=== PATIENT | male | born 1945 | race African-American/Black ===

== ENCOUNTER 2017-02-16 16:01 | Observation (INO) ==
--- NOTE | 2017-02-16 16:41 | EKG Report ---
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
--- NOTE | 2017-02-16 17:00 | XRay Report ---
History short of breath Comparison 01/11/2016 The heart is mildly enlarged No congestive failure or confluent infiltrates seen Impression: Mild cardiomegaly PROCEDURE INTERPRETED AT [facility] DEPARTMENT OF RADIOLOGY Final Report Signed by: Dr. Nica Palma
[2017-02-16 17:18] LABS: Basophils # 0.1 10*3/uL (0.0-0.2); Basophils % 0.9 % (0.0-0.8); Eosinophils # 0.2 10*3/uL (0.0-0.87); Eosinophils % 2.8 % (0.00-10.9); Hematocrit 35.6 VOL% (42.0-52.0); Hemoglobin 11.9 GM/DL (14.0-18.0); Immature Granulocytes % 0.1 %; Immature Granulocytes Absolute 0.01 #; Lymphocytes # 2.7 10*3/uL (1.4-4.0); Lymphocytes % 38.6 % (21.2-54.2); Mean Corpuscular HGB Conc 33.4 GM/DL (32-36); Mean Corpuscular Hemoglobin 31 PG (27-34); Mean Platelet Volume 11.1 FL (9.6-12.0); Monocytes # 0.6 10*3/uL (0.11-0.8); Monocytes % 8.4 % (1.7-12.7); Neutrophils # 3.4 10*3/uL (1.4-7.4); Neutrophils % 49.2 % (38.7-73.9); Platelet Count 133 T/CUMM (130-400); Red Blood Count 3.87 MC/CUMM (3.8-5.5); Red Cell Distribution Width 12.9 % (9.3-17.3); White Blood Count 6.9 T/CUMM (4-12)
--- NOTE | 2017-02-16 17:25 | CT Report ---
CT of the head without contrast. Indication: Dizziness. No previous study. There is calcific plaque present within the intracranial internal carotid arteries and vertebral arteries. There is generalized age-appropriate atrophy. There is bilateral basal ganglial calcification. There is no mass effect or midline shift. There is no evidence of acute hemorrhage. No cortical infarcts are seen at this time. There are areas of low density in the periventricular white matter, likely related to chronic microvascular ischemia. The internal auditory canals are of normal caliber. The calvarium is intact. The mastoid air cells are clear. 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 There is scattered mucosal thickening in the ethmoid sinuses. Postsurgical changes are noted at the cervical spine level. Impression: Mild paranasal sinus disease. White matter changes likely attributable to chronic microvascular ischemia. The CT exam was performed using one or more of the following dose reduction techniques: Automated exposure control, adjustment of the mA and/or kV according to patient size, or use of iterative reconstruction technique. PROCEDURE INTERPRETED AT [facility] DEPARTMENT OF RADIOLOGY Final Report Signed by: Dr. Alicia Palma
--- NOTE | 2017-02-16 17:32 | Emergency Department Note ---
Sanford Harrison Gwan, am scribing for, and in the presence of, Juan Covarrubias MD 16:42. Satish Harrison Phillip K, MD, personally performed the services described in this documentation, ascribed by Will Christina in my presence, and it is both accurate and complete 732 . Arrival - Arrival Chief Complaint: Dizziness Stated Complaint: DIZZY LEG WEAK SOB ED Nursing Triage Note: Pt was at [employer] this afternoon when he started to become Dizzy, near syncope, weakness, and SOB. Denies CP. 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 Mode of Arrival: Wheelchair Limitations: No Limitations Source: Patient, Old Records Reviewed, RN Notes Reviewed - History of Present Illness HPI Narrative: Patient is a 71 y/o male who presents to the ED for further evaluation of near syncope, generalized weakness, dizziness and SOB with an onset today. He has a PMHx of stent, CAD and TN. Patient stated that onset occurred while at [employer]. As he was walking back into the hinduism, he noted that he became very weak all over, developed a CHAVEZ and lost his vision before his near syncopal episode. He then said that the episode last about 10 minutes and after which he had bilateral numbness and weakness in his LE. S/P onset, pt had BS checked with a reading of 93. He denies having any chest pain, sore throat, cough or any hx of DM. While in ED, pt stated that he still has some weakness/numbness in legs and that he still has a CHAVEZ. Patient is followed by Dr. Martinez and [facility]. Onset (ago): hour(s) Consistency: constant Severity: moderate Allergies/Adverse Reactions: Allergies Allergy/AdvReac Type Severity Reaction Status Date / Time No Known Allergies Allergy Verified 06/08/15 18:19 Home Medications: Home Medications Medication Instructions Recorded Confirmed Type Aspirin [Ecotrin] 81 mg PO DAILY 06/08/15 02/16/17 History Review of System - Review of System 12 point system: reviewed and no additional remarkable complaints except as stated - Review of System Constitutional: Absent: chills, diaphoresis Eyes: Absent: discharge, pain Head/Ears/Nose/Throat: Absent: earache Respiratory: Present: as per HPI, other (shortness of breathe ) Cardiovascular: Present: as per HPI, syncope (near syncope). Absent: chest pain Gastrointestinal: Absent: abdominal pain, nausea, vomiting Genitourinary male: Absent: urgency, dysuria Musculoskeletal: Absent: arm pain, back pain, leg pain, neck pain Skin: Absent: rash Neurological: Present: as per HPI, weakness, other (dizziness ) Medical,Surgical,& Family Hx - Medical History Cardio: History of: CAD, Hypertension, TN Endocrine: History of: Dyslipidemia No history of: Diabetes Mellitus (IDDM), Diabetes Mellitus (NIDDM) Respiratory: No history of: Asthma, Pneumonia Renal: No history of: Renal Failure, Renal Problems Gastrointestinal: History of: GERD No history of: Gastrointestinal Bleed, Liver Problems - Surgical History Cardiac Surgeries: Sugical HX of: Cardiac Catheterization (stent) - Social History Smoking Status: Former smoker Exam Vital Signs: Vital Signs Temperature 98.1 F 02/16/17 16:08 Pulse Rate 67 02/16/17 16:08 Respiratory Rate 18 02/16/17 16:08 Blood Pressure 199/94 02/16/17 16:08 O2 Sat by Pulse Oximetry 100 02/16/17 16:08 - General General appearance: alert, in no apparent distress - Head Head exam: Present: atraumatic, normocephalic - Eye Eye exam: Present: normal appearance, PERRL, EOMI - ENT ENT exam: Present: normal oropharynx, mucous membranes moist, TM's normal bilaterally, normal external ear exam - Neck Neck exam: Present: full ROM, trachea midline. Absent: tenderness - Chest Chest inspection: Present: symmetric chest wall rise. Absent: tenderness - Respiratory Respiratory exam: Present: normal lung sounds bilaterally. Absent: respiratory distress - Cardiovascular Cardiovascular exam: Present: regular rate, normal rhythm, normal heart sounds. Absent: murmur - Abdominal Exam Abdominal exam: Present: soft, normal bowel sounds. Absent: distention, tenderness - Extremities Exam Extremities exam: Present: full ROM. Absent: tenderness - Back Exam Back exam: Present: full ROM. Absent: tenderness - Neurological Exam Neurological exam: Present: alert, oriented X3, CN II-XII intact. Absent: motor sensory deficit - Psychiatric Psychiatric exam: Present: normal affect, normal mood - Skin Skin exam: Present: warm, dry, intact, normal color Course Course Narrative: Patient discussed with the hospitalist who will admit for further evaluation. Results - Labs CBC & BMP: 02/16/17 16:51 Lab Results: I have reviewed the patients labs - EKG EKG results: interpreted by CLARISSA, sinus rhythm (Possible old anteroseptal TN.) - Diagnostic Findings Procedure: Chest x-ray: report reviewed by me (Mild Cardiomegaly.), CT: report reviewed by me (No acute intracranial abnormality.) Disposition Clinical Impression: Near syncope, Hypertension, Headache, Dizziness Case discussed with: patient, patient's family Disposition: Still a Patient Condition: Guarded Additional Instructions: Admit for cardiac monitoring and further workup.
[2017-02-16] MEDS ORDERED: amLODIPine 5 MG TABLET PO STA (17:33)
[2017-02-16 17:34] LABS: Apearance,Urine CLEAR (Clear); Bilirubin,Urine Negative (Negative); Blood, Urine Small mg/dL (Negative); Glucose,Urine (UA) Negative (Negative); Ketones,Urine Negative (Negative); Mucus,Urine Occasional /LPF (Occasional); Nitrite,Urine Negative (Negative); Protein,Urine Negative; RBC,Urine <1 /HPF (0-4); Squamous Epithelial Cell,Urine Occasional /HPF (0-10); Urine Color Straw (Yellow); Urine Specific Gravity 1.008 (1.001-1.035); Urine Urobilinogen < 2.0 EU/DL (0.2-1.0); WBC,Urine <1 /HPF (0-6)
[2017-02-16] MEDS ORDERED: amLODIPine 5 MG TABLET ONE (17:38)
[2017-02-16 18:05] LABS: Alanine Aminotransferase 15 U/L (16-61); Albumin 3.8 G/DL (3.4-5.0); Alkaline Phosphatase 115 U/L (45-117); Aspartate Amino Transferase 17 U/L (0-37); Blood Urea Nitrogen 17 MG/DL (7-18); Calcium 8.6 MG/DL (8.5-10.1); Glucose 92 MG/DL (74-106); Magnesium 1.9 MG/DL (1.8-2.4); Osmolality,Calculated 282.3 MOS/KG (273-304); Potassium 4.2 MMOL/L (3.5-5.1); Sodium 141 MMOL/L (136-145); Total Protein 7.8 G/DL (6.4-8.3); Troponin I Only < 0.015 NG/ML (0.00-0.045)
--- NOTE | 2017-02-16 18:09 | Hospitalist History & Physical ---
Assessment and Plan (1) Near syncope Status: Acute Assessment and plan: most likely due to malignant htn, carotid, echo serial troponins, serial EKGs Current Visit: Yes (2) Malignant hypertension Status: Acute Assessment and plan: norvasc 10 mg po every day, prn hydralazine Current Visit: Yes (3) Hyperlipidemia Status: Acute Assessment and plan: restart home meds when known Current Visit: Yes History of Present Illness Chief complaint: syncope History of present illness: Mr. Arzola is a 71 year old male who presents to the ED for further evaluation of near syncope, generalized weakness, dizziness and SOB with an onset today. He has a PMHx of stent, CAD and [place]. Patient stated that onset occurred while at synagogue. As he was walking back into the synagogue, he noted that he became very weak all over, developed a CHAVEZ and lost his vision before his near syncopal episode. He then said that the episode last about 10 minutes and after which he had bilateral numbness and weakness in his LE. S/P onset, pt had BS checked with a reading of 93. He denies having any chest pain, sore throat, cough or any hx of DM. While in ED, pt stated that he still has some weakness/numbness in legs and that he still has a CHAVEZ. Patient is followed by Dr. Martinez and physicians at the [facility]. Home Medications Medication Instructions Recorded Confirmed Type Aspirin [Ecotrin] 81 mg PO DAILY 06/08/15 02/16/17 History Allergies Allergy/AdvReac Type Severity Reaction Status Date / Time No Known Allergies Allergy Verified 06/08/15 18:19 Medical,Surgical,& Family Hx - Medical History Cardio: History of: CAD, Hypertension, WI Endocrine: History of: Dyslipidemia No history of: Diabetes Mellitus (IDDM), Diabetes Mellitus (NIDDM) Respiratory: No history of: Asthma, Pneumonia Renal: No history of: Renal Failure, Renal Problems Gastrointestinal: History of: GERD No history of: Gastrointestinal Bleed, Liver Problems - Surgical History Cardiac Surgeries: Sugical HX of: Cardiac Catheterization (stent) - Family History Family History: Reports;: Family Heart Disease - Social History Smoking Status: Former smoker Frequency of Alcohol Use: None Type of Drug Use: None Marital Status: Lives With:: Spouse Functional capacity: independent ambulation - Constitutional Constitutional: Absent: fever(s), headache(s) - EENT Eyes: Absent: blurry vision, loss of vision Ears: Absent: decreased hearing, ear discharge Nose, mouth and throat: Present: sore throat. Absent: headache(s) - Cardiovascular Cardiovascular: Present: dyspnea on exertion. Absent: chest pain at rest, dyspnea, edema - Respiratory Respiratory: Present: dyspnea on exertion. Absent: dyspnea - Gastrointestinal Gastrointestinal: Present: nausea. Absent: constipation, diarrhea, vomiting - Genitourinary Genitourinary: Absent: difficulty urinating, dysuria - Musculoskeletal Musculoskeletal: Present: back pain - Neurological Neurological: Present: dizziness, syncope. Absent: confusion, headache(s) - Psychiatric Psychiatric: Absent: anxiety, depression - Endocrine Endocrine: Absent: cold intolerance, fatigue, heat intolerance - Hematologic/Lymphatic Hematologic/Lymphatic: Absent: easy bleeding, easy bruising Exam - Constitutional Vitals: Period Temp Pulse Resp BP Sys/Rouse Pulse Ox Last 24 Hr 98.1 F-98.1 F 67-67 18-18 199-199/94-94 100 General appearance: normal weight, no acute distress - Head Head exam: Present: normal inspection, normocephalic - Eye Eye exam: Present: EOMI. Absent: scleral icterus Pupils: Present: CARROLL, normal accommodation - ENT ENT exam: Present: normal exam, normal external ear exam - Neck Neck exam: Absent: lymphadenopathy, thyromegaly - Respiratory Respiratory exam: Present: clear to auscultation bilaterally. Absent: rhonchi, wheezes - Cardiovascular Cardiovascular exam: Present: regular rate and rhythm. Absent: systolic murmur - GI/Abdominal GI/Abdominal exam: Present: normal bowel sounds, soft. Absent: tenderness - Extremities Exam Extremities exam: Present: normal inspection, normal capillary refill - Neurological Exam Neurological exam: Present: alert, oriented X3, CN II-XII intact, reflexes normal. Absent: motor sensory deficit - Psychiatric Psychiatric exam: Present: normal affect, normal mood - Skin Skin exam: Present: normal color, warm Results - Labs CBC & BMP: 02/16/17 16:51 Lab Results: I have reviewed the past 24 hour labs - EKG EKG shows: sinus rhythm - Impressions q wave in anterior leads - Diagnostic Findings Procedure: Chest x-ray: report reviewed by me (nothing acute), CT: report reviewed by me (head nothing acute )
--- NOTE | 2017-02-16 19:08 | Ultrasound Report ---
Renal ultrasound. Indication: Acute renal failure. No prior studies. The kidneys are normal in size, the right one measuring 7.7 x 3.7 x 3.9 cm and the left measuring 9.0 x 4.7 x 4.7 cm. The cortical thickness is normal. There is no hydronephrosis. The parenchymal echogenicity is increased. The left kidney contains 2 subcentimeter cysts, one at the upper pole measuring 3 x 4 x 6 mm and one at the lower pole measuring 6 x 6 mm. No focal masses. Impression: Increased parenchymal echogenicity, which is associated with medical renal disease. 2 small cysts of the left kidney. PROCEDURE INTERPRETED AT [facility] DEPARTMENT OF RADIOLOGY Final Report Signed by: Dr. Alicia Palma
[2017-02-16] MEDS ORDERED: ONDANSETRON 4 MG/2 ML VIAL IV PRN (19:16)
[2017-02-16] MEDS ORDERED: ZALEPLON 5 MG CAPSULE PO PRN (19:16)
[2017-02-16] MEDS ORDERED: ACETAMINOPHEN 325 MG TABLET PO PRN (19:16)
[2017-02-16] MEDS ORDERED: hydrALAZINE 20 MG/1 ML VIAL IV PRN (19:16)
[2017-02-16] MEDS ORDERED: amLODIPine 5 MG TABLET PO ONE (19:45)
[2017-02-16 20:31] LABS: Free T4 (Free Thyroxine) 1.08 NG/DL (0.76-1.46); Troponin I Only < 0.015 NG/ML (0.00-0.045)
[2017-02-16] MEDS ORDERED: ENOXAPARIN 40 MG/0.4 ML SYRINGE SUBCUT SCH (21:00)
--- NOTE | 2017-02-16 21:31 | Ultrasound Report ---
Bilateral carotid Doppler. Grayscale, color flow, and spectral analysis performed and interpreted. Indication: Syncope. There is moderate predominantly bland plaque present at the left carotid bulb. The left internal carotid artery peak systolic velocity is 106 cm/s, with an IC/CC ratio of 0.6. The left internal carotid artery peak systolic velocity is 132 cm/s, with an IC/CC ratio of 1.8. There is antegrade flow within each vertebral artery. Impression: Using NASCET criteria, findings consistent with less than 50% stenosis bilaterally. On the left, stenosis is approaching 50%. PROCEDURE INTERPRETED AT [facility] DEPARTMENT OF RADIOLOGY Final Report Signed by: Dr. Alicia Palma
[2017-02-17 04:43] LABS: Risk Ratio 2.34; VLDL CHOLESTEROL 12.6 MG/DL
--- NOTE | 2017-02-17 05:35 | EKG Report ---
Stationary ECG Study [facility] Test Date: 02/16/2017 11:00:27 PM Pat Name: MOHAN MATTHEWS Department: Room: 289 Gender: M Emt: : 1945 Requested by: Eri Beaver Order Number: [id number] Reading MD: MANISH JARAMILLO Intervals [place] Rate: 56 P: 65 ND: 159 QRS: 51 QRSD: 107 T: 55 QT: 444 QTc: 436 Interpretive Statements SINUS BRADYCARDIA POSSIBLE LEFT ATRIAL ENLARGEMENT ANTEROSEPTAL INFARCT, AGE UNDETERMINED Electronically Signed On 02-19-17 15:08:12 CDT by MANISH JARAMILLO [email or web address]
--- NOTE | 2017-02-17 06:13 | EKG Report ---
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
[2017-02-17] MEDS: amLODIPine 10 MG TABLET PO SCH (08:59)
[2017-02-17] MEDS: ASPIRIN EC 81 MG TABLET PO SCH (08:59)
[2017-02-17] MEDS: PANTOPRAZOLE 40 MG TABLET PO SCH (08:59)
[2017-02-17 12:07] LABS: Bilirubin,Total < 0.39 MG/DL (0.2-1.0)
--- NOTE | 2017-02-17 13:23 | Hospitalist Progress Note ---
Hospitalist: Subjective Interval history: Pt reports still dull ache to mid chest no radiation. No SOB, palpitations, nausea, or vomiting. C/O pounding headache. Did not hit head when fell out Exam - Constitutional Vitals: Period Temp Pulse Resp BP Sys/Rouse Pulse Ox Last 24 Hr 97.6 F-98.9 F 53-71 18-18 123-208/72-96 96-100 Exam: A and O x 3, chronically ill-appearing Neck is supple no lymphadenopathy or thyromegaly appreciated no JVD Regular rate and rhythm no obvious murmurs rubs or gallop Lungs are clear to auscultation bilaterally with good aeration nonlabored breathing Abdomen soft nontender nondistended positive bowel sounds no organomegaly or masses appreciated Extremity exam is warm and well-perfused no clubbing cyanosis or edema Neuro exam is nonfocal Results - Labs CBC & BMP: 02/16/17 16:51 02/16/17 16:51 Labs: Renal U/S: Impression: Increased parenchymal echogenicity, which is associated with medical renal disease. 2 small cysts of the left kidney. Carotid dopplers: Impression: Using NASCET criteria, findings consistent with less than 50% stenosis bilaterally. On the left, stenosis is approaching 50%. CT head: Impression: Mild paranasal sinus disease. White matter changes likely attributable to chronic microvascular ischemia. ECHO pending - Impressions (1) Near syncope possibly due to malignant hypertension Status: Acute Assessment and plan: F/U echo. Consult cardiology as he will need pre-op clearance for left TKR anyway. Carotid dopplers: Impression: Using NASCET criteria, findings consistent with less than 50% stenosis bilaterally. On the left, stenosis is approaching 50%. CT head: Impression: Mild paranasal sinus disease. White matter changes likely attributable to chronic microvascular ischemia. serial troponins are negative. No significant dysrhythmias reported on telemetry Current Visit: Yes (2) Malignant hypertension- improved Status: Acute Assessment and plan: Cont norvasc 10 mg po every day, prn hydralazine Current Visit: Yes (3) Hyperlipidemia Status: Acute Assessment and plan: Resume home meds Current Visit: Yes (4) CKD stage 3 -Renal U/S: Impression: Increased parenchymal echogenicity, which is associated with medical renal disease. 2 small cysts of the left kidney. - Counseled on avoiding nephrotoxic agents (5) Cephalgia possibly due to rebound headache - analagesics prn - CT head showed no acute process D/W pt and and all questions answered.
--- NOTE | 2017-02-17 15:50 | Cardiology Consult Note ---
Assessment and Plan - Time spent with patient Time spent with patient: Greater than 30 minutes (1) Bradycardia Status: Acute Assessment and plan: SEE PLAN OF CARE LISTED BELOW Current Visit: Yes (2) Renal insufficiency Status: Acute Assessment and plan: SEE PLAN OF CARE LISTED BELOW Current Visit: Yes (3) Headache Status: Acute Assessment and plan: SEE PLAN OF CARE LISTED BELOW Current Visit: Yes (4) Hyperlipidemia Status: Chronic Assessment and plan: SEE PLAN OF CARE LISTED BELOW Current Visit: Yes (5) Hypertension Status: Chronic Assessment and plan: SEE PLAN OF CARE LISTED BELOW Current Visit: Yes (6) Near syncope Status: Resolved Assessment and plan: SEE PLAN OF CARE LISTED BELOW Current Visit: Yes History of Present Illness - Data of Consult Patient: known to practice within the last 3 years Consult date: 02/17/17 Requesting Physician: Yadira Arenas - Consult Narrative Reason for consult: chest pain, known CAD, near syncope History of present illness: 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 MARTINEZ Mr. Arzola, 71BM, previously followed by Dr. Martinez though he has not been seen in several years. Risk factors include: Known coronary artery disease, hypertension, dyslipidemia. Patient presented to the emergency department at [facility] February 16, 2017, after experiencing dizziness, weakness, visual changes. Patient had been standing outside in the heat and his latter-day yard. He began to feel "dizzy like I was drunk" and his vision began to change. He began to have visual "blackout" and his knees became weak. When he reached the interior of the latter-day, he leaned against a wall and eventually eased to the ground. He denies having chest pain, heaviness or tightness. He denies having palpitations or any preceding symptoms. He states he did have some shortness of breath with this episode. The symptoms lasted approximately 3-4 minutes and resolved. Later on during the night, he began to experience chest discomfort in the midsternal area described as "sharp." It did not radiate, cause nausea, vomiting, diaphoresis or shortness of breath. It is reproducible with palpation. Patient reports he is normally very active and can perform these activities without chest pain, heaviness, tightness or shortness of breath. He has no heart racing or palpitations. Patient reports he has had some swelling of lower extremities over the past several months. Blood pressure is uncontrolled. He is on Losartan. Creatinine is 2.1. He is uncertain if his kidney insufficiency is acute or chronic. I will stop his Losartan and evaluate his creatinine. Start Norvasc now with IV Hydralazine to use as needed. Tomorrow, may need a second anti-hypertensive if blood pressure is not better once his headache has resolved. Echocardiogram has been performed. We will continue to monitor his telemetry. He did have some lower heart rates in the mid 50s, sinus rhythm. Patient may need an outpatient event monitor. I will also check orthostatic vital signs tonight and in the morning. I will treat his reproducible chest pain with Gabapentin, Acetaminophen and Ultram. Morphine for his headache. D-Dimer and venous US. I will further discuss with Dr. Martinez and await additional recommendations ASSESSMENT/PLAN: 1. NEAR SYNCOPE - will monitor his telemetry, await echo results. Patient has had bradycardia but only as low as mid 50s. At discharge, may consider event monitor if no other etiology is identified. May have been volume depleted and/or got over heated. Will check orthostatic VS. 2. CHEST PAIN - reproducible to palpation. "Joycestone cocktail" for MS pain. Patient does have known heart disease and may benefit from outpatient stress test and this may be arranged at [facility] prior to discharge. 3. HYPERTENSION -Norvasc has been maximized therefore I will add hydralazine orally 3 times daily with as needed parameters for IV hydralazine. Cannot tolerate jennifer blocking agent due to bradycardia. We will monitor his creatinine and avoid HERNANDO inhibitors and ARBs for now. 4. DYSLIPIDEMIA - LDL 81. Currently taking Atorvastatin. Was increased from 20mg to 40mg each evening. 5. 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 6. HEAD-ACHE - may be related to hypertension. CT Head does not reveal acute abnormality. 7. RENAL INSUFFICIENCY, STAGE III - chronicity unknown. CC: Yadira Arenas MD - Home Medications and Allergies Home Medications: Home Medications Medication Instructions Recorded Confirmed Type Aspirin [Ecotrin] 81 mg PO DAILY 06/08/15 02/16/17 History Atorvastatin [Lipitor] 40 mg PO DAILY 02/17/17 02/17/17 History Cholecalciferol [Vitamin D3] 2,000 unit PO DAILY 02/17/17 02/17/17 History Hydrocodone/Acetaminophen 7.5 mg PO BID PRN 02/17/17 02/17/17 History [Hydrocodon-Acetaminoph 7.5-325] Losartan Potassium 100 mg PO DAILY 02/17/17 02/17/17 History Pantoprazole Tab [Protonix Tab] 40 mg PO DAILY 02/17/17 02/17/17 History Primidone 100 mg PO BEDTIME 02/17/17 02/17/17 History Allergies/Adverse Reactions: Allergies Allergy/AdvReac Type Severity Reaction Status Date / Time No Known Allergies Allergy Verified 06/08/15 18:19 Review of systems: REVIEW OF SYSTEMS: See HPI - Constitutional Constitutional: Near syncope. Absent: syncope, anorexia, night sweats. Headache - EENT Eyes: Brief loss of vision reported. Absent: blurry vision, diplopia Ears: Absent: decreased hearing, ear pain, ear discharge - Cardiovascular Cardiovascular: Denies chest pain with exertion. Chest pain is reproducible midsternal area. Denies dyspnea on exertion. Recent bilateral lower extremity swelling. Denies palpitations. Absent: chest pain with deep breath, claudication - Respiratory Respiratory: Denies CONDE, cough. Absent: wheezing, hemoptysis, change in phlegm color - Gastrointestinal Gastrointestinal: Denies constipation. Absent: abdominal pain, hematemesis, hematochezia, melena, change in bowel habits, nausea - Genitourinary Genitourinary: Absent: difficulty urinating, dysuria, urinary hesitancy, flank pain - Musculoskeletal Musculoskeletal: Denies back pain Absent: joint swelling, muscle cramps, muscle weakness - Neurological Neurological: Present: normal gait without frequent falls. Absent: dizziness, hemiparesis - Psychiatric Psychiatric: Absent: anxiety, depression, difficulty concentrating - Endocrine Endocrine: Absent: cold intolerance, heat intolerance, polyuria, polyphagia, polydipsia - Hematologic/Lymphatic Hematologic/Lymphatic: Present: easy bruising. Absent: easy bleeding -Integumentary Integumentary: Absent: lesions, rashes, skin breakdown Medical,Surgical,& Family Hx - Medical History Cardio: History of: CAD, Hypertension, [place] Endocrine: History of: Dyslipidemia No history of: Diabetes Mellitus (IDDM), Diabetes Mellitus (NIDDM) Respiratory: No history of: Asthma, Pneumonia Renal: No history of: Renal Failure, Renal Problems Gastrointestinal: History of: GERD No history of: Gastrointestinal Bleed, Liver Problems - Surgical History Cardiac Surgeries: Sugical HX of: Cardiac Catheterization (stent) - Family History Family History: Reports;: Family Heart Disease - Social History Smoking Status: Former smoker Have you smoked in the last 12 months: No Frequency of Alcohol Use: None Type of Drug Use: None Marital Status: Lives With:: Spouse Functional capacity: independent ambulation Physical Examination Vital Signs Temp Pulse Resp BP Pulse Ox 98.1 F 67 18 199/94 100 02/16/17 16:08 02/16/17 16:08 02/16/17 16:08 02/16/17 16:08 02/16/17 16:08 General: [Appears well with no apparent distress.] [Pleasant and cooperative. ] [Appears comfortable.] HEENT: [PERRL, normocephalic, atraumatic. Mucous membranes moist. No jaundice noted. Conjunctiva moist and clear, sclerae anicteric] Neck: No JVD/HJR, no thyromegaly or lymphadenopathy noted. No carotid bruit appreciated Cardiac: [Regular rate and rhythm.] [No murmur rub or gallop.] Lungs: [Clear to auscultation without accessory muscle use to assist the respiratory pattern.] Not requiring oxygen Abdomen: Soft, bowel sounds normoactive. Nontender and nondistended. No abdominal bruit or thrill noted. No masses noted. Musculoskeletal: No fluid collection. Decreased range of motion is noted. Extremities: No clubbing, cyanosis noted. [ No edema noted.] Upper extremity pulses 2+. Lower extremity pulses 2+. Capillary refill less than 3 seconds. Skin: No unusual lesions or rashes. No skin breakdown appreciated. Neuro: Awake, alert and oriented 3. Moves all extremities well without hemiparesis or paralysis. No essential tremor is appreciated. Result/EKG - Labs CBC & BMP: 02/16/17 16:51 02/16/17 16:51 Lab Results: I have reviewed the past 24 hour labs Labs: Laboratory Results - last 24 hr 02/16/17 02/16/17 02/16/17 16:51 16:51 16:51 WBC 6.9 RBC 3.87 Hgb 11.9 L Hct 35.6 L MCV 92.0 MCH 31 MCHC 33.4 RDW 12.9 Plt Count 133 MPV 11.1 Neut % (Auto) 49.2 Lymph % (Auto) 38.6 [place] % (Auto) 8.4 Eos % (Auto) 2.8 Baso % (Auto) 0.9 H Neut # (Auto) 3.4 Lymph # (Auto) 2.7 [place] # (Auto) 0.6 Eos # (Auto) 0.2 Baso # (Auto) 0.1 Immature Gran % 0.1 Nucleated RBC % 0.0 Immature Gran # 0.01 Nucleated RBCs # 0.00 Sodium 141 Potassium 4.2 Chloride 107 Carbon Dioxide 25 Anion Gap 13.2 BUN 17 Creatinine 2.10 H GFR Calculation 37 BUN/Creatinine Ratio 8.00 Glucose 92 Calculated Osmolality 282.3 Calcium 8.6 Magnesium 1.9 Total Bilirubin < 0.39 AST 17 ALT 15 L Alkaline Phosphatase 115 Troponin I < 0.015 B-Natriuretic Peptide Total Protein 7.8 Albumin 3.8 Globulin 4.0 H Albumin/Globulin Ratio 0.9 L Triglycerides Cholesterol LDL Cholesterol VLDL Cholesterol HDL Cholesterol Heart Disease Risk Ratio Free T4 TSH 3rd Generation 1.110 Urine Color Urine Appearance Urine pH Ur Specific Romulus Urine Protein Urine Glucose (UA) Urine Ketones Urine Blood Urine Nitrate Urine Bilirubin Urine Urobilinogen Urine Leukocytes Urine RBC Urine WBC Ur Squamous Epith Cells Urine Mucus Ur Culture Indicated? 02/16/17 02/16/17 02/16/17 16:51 17:18 19:44 WBC RBC Hgb Hct MCV MCH MCHC RDW Plt Count MPV Neut % (Auto) Lymph % (Auto) [place] % (Auto) Eos % (Auto) Baso % (Auto) Neut # (Auto) Lymph # (Auto) [place] # (Auto) Eos # (Auto) Baso # (Auto) Immature Gran % Nucleated RBC % Immature Gran # Nucleated RBCs # Sodium Potassium Chloride Carbon Dioxide Anion Gap BUN Creatinine GFR Calculation BUN/Creatinine Ratio Glucose Calculated Osmolality Calcium Magnesium Total Bilirubin AST ALT Alkaline Phosphatase Troponin I < 0.015 B-Natriuretic Peptide 82 Total Protein Albumin Globulin Albumin/Globulin Ratio Triglycerides Cholesterol LDL Cholesterol VLDL Cholesterol HDL Cholesterol Heart Disease Risk Ratio Free T4 1.08 TSH 3rd Generation Urine Color Straw Urine Appearance Clear Urine pH 6.0 Ur Specific Romulus 1.008 Urine Protein Negative Urine Glucose (UA) Negative Urine Ketones Negative Urine Blood Small Urine Nitrate Negative Urine Bilirubin Negative Urine Urobilinogen < 2.0 H Urine Leukocytes Negative Urine RBC <1 Urine WBC <1 Ur Squamous Epith Cells Occasional Urine Mucus Occasional Ur Culture Indicated? Not indicated 02/17/17 02/17/17 02/17/17 03:39 03:39 03:39 WBC RBC Hgb Hct MCV MCH MCHC RDW Plt Count MPV Neut % (Auto) Lymph % (Auto) [place] % (Auto) Eos % (Auto) Baso % (Auto) Neut # (Auto) Lymph # (Auto) [place] # (Auto) Eos # (Auto) Baso # (Auto) Immature Gran % Nucleated RBC % Immature Gran # Nucleated RBCs # Sodium Potassium Chloride Carbon Dioxide Anion Gap BUN Creatinine GFR Calculation BUN/Creatinine Ratio Glucose Calculated Osmolality Calcium Magnesium Total Bilirubin AST ALT Alkaline Phosphatase Troponin I < 0.015 < 0.015 B-Natriuretic Peptide Total Protein Albumin Globulin Albumin/Globulin Ratio Triglycerides 63 Cholesterol 145 LDL Cholesterol 81.0 VLDL Cholesterol 12.6 HDL Cholesterol 62 H Heart Disease Risk Ratio 2.34 Free T4 TSH 3rd Generation Urine Color Urine Appearance Urine pH Ur Specific Romulus Urine Protein Urine Glucose (UA) Urine Ketones Urine Blood Urine Nitrate Urine Bilirubin Urine Urobilinogen Urine Leukocytes Urine RBC Urine WBC Ur Squamous Epith Cells Urine Mucus Ur Culture Indicated? - Diagnostic Findings Procedure: Chest x-ray: report reviewed by me, CT: report reviewed by me - EKG EKG results: interpreted by me EKG shows: bradycardia, sinus rhythm
[2017-02-17] MEDS ORDERED: MEPERIDINE 25 MG/1 ML VIAL IV ONE (16:17)
[2017-02-17] MEDS ORDERED: PROMETHAZINE 25 MG TABLET PO ONE (16:18)
[2017-02-17] MEDS ORDERED: amLODIPine 5 MG TABLET PO ONE (16:20)
[2017-02-17] MEDS: hydrALAZINE 25 MG TABLET PO SCH ×2 (16:47→20:13)
[2017-02-17] MEDS: ENOXAPARIN 30 MG/0.3 ML SYRINGE SUBCUT SCH (16:47)
[2017-02-17] MEDS: ACETAMINOPHEN 325 MG TABLET PO SCH ×2 (16:47→20:14)
[2017-02-17] MEDS: traMADol 50 MG TABLET PO SCH ×2 (17:38→20:16)
[2017-02-17] MEDS: GABAPENTIN 100 MG CAPSULE PO SCH ×2 (17:38→20:16)
--- NOTE | 2017-02-17 18:43 | ECHO Report ---
Jeffery Arzola 02/17/2017 Exam Date: 10:01 Referring Physician: Kia Mccarthy Technologist: JLUIS Age: 71 Ht (in): 70 Wt (lb): 148 MExam [facility] Gender: Echo [id number]: HTN, hyperlipidemia, dizziness, neaIndications:r syncope, headache BP: 135 / 74 HR: 53 SinusRhythm: GoodTechnical Quality: IMPRESSIONS Mild concentric left ventricular hypertrophy. Left ventricular ejection fraction is estimated at > 55 %. 1 + RVE . 1 + LUIS ANTONIO. Mild mitral valve regurgitation. Mild aortic valve sclerosis without stenosis or regurgitation. Trace pulmonary valve regurgitation. MEASUREMENTS (Male / Female) Normal Values 2D ECHO LV Diastolic Diameter PLAX 4.2 cm 4.2 - 5.9 / 3.9 - 5.3 cm LV Systolic Diameter PLAX 2.9 cm LV Fractional Shortening PLAX 30.1 % IVS Diastolic Thickness 1.4 cm 0.6 - 1.0 / 0.6 - 0.9 cm LVPW Diastolic Thickness 1.2 cm 0.6 - 1.0 / 0.6 - 0.9 cm RV Internal Dim ED PLAX 2.4 cm Aortic Root Diameter 2.6 cm LA Systolic Diameter LX 3.4 cm 3.0 - 4.0 / 2.7 - 3.8 cm FINDINGS Left Ventricle Moderately increased septal wall thickness. Mild concentric left ventricular hypertrophy. Left ventricular ejection fraction is estimated at > 55 %. Right Ventricle 1 + RVE Right Atrium 1 + LUIS ANTONIO Left Atrium Normal left atrial size. Mitral Valve Mild mitral valve sclerosis. Mild mitral valve regurgitation. Aortic Valve Mild aortic valve sclerosis without stenosis or regurgitation. Tricuspid Valve Morphologically normal tricuspid valve. Pulmonic Valve Morphologically normal pulmonic valve. Trace pulmonary valve regurgitation. Pericardium No pericardial effusion. Aorta Normal size aortic root and proximal ascending aorta. Jomar Martinez MD (Electronically Signed) 17 February 2017 Final Date: 18:42
[2017-02-17] MEDS ORDERED: PRIMIDONE 50 MG TABLET PO SCH (21:00)
[2017-02-17] MEDS ORDERED: oxyCODONE ER 10 MG TABLET PO SCH (21:00)
[2017-02-17] MEDS ORDERED: ATORVASTATIN 40 MG TABLET PO SCH (21:00)
--- NOTE | 2017-02-18 07:59 | EKG Report ---
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
[2017-02-18] MEDS: ACETAMINOPHEN 325 MG TABLET PO SCH (08:26)
[2017-02-18] MEDS: amLODIPine 10 MG TABLET PO SCH (08:26)
[2017-02-18] MEDS: traMADol 50 MG TABLET PO SCH (08:27)
[2017-02-18] MEDS: GABAPENTIN 100 MG CAPSULE PO SCH (08:27)
[2017-02-18] MEDS: ASPIRIN EC 81 MG TABLET PO SCH (08:27)
[2017-02-18] MEDS: hydrALAZINE 25 MG TABLET PO SCH (08:27)
[2017-02-18] MEDS: PANTOPRAZOLE 40 MG TABLET PO SCH (08:27)
[2017-02-18] MEDS ORDERED: CHOLECALCIFEROL 1,000 UNIT TABLET PO SCH (09:00)
[2017-02-18] MEDS ORDERED: ATORVASTATIN 80 MG TABLET PO SCH (09:00)
[2017-02-18] MEDS ORDERED: PANTOPRAZOLE 40 MG TABLET PO SCH (09:00)
[2017-02-18] MEDS ORDERED: amLODIPine 5 MG TABLET PO SCH (09:00)
[2017-02-18] MEDS ORDERED: LACTULOSE 20 GM/30 ML UDCUP PO PRN (10:28)
[2017-02-18 11:52] VITALS: BP 123/61
--- NOTE | 2017-02-18 12:35 | Discharge Summary ---
Hospital Course - Hospital Course Hospital Course: Pt is a 71-year-old male with a history of HTN, CAD s/p stent who presents to the ED for further evaluation of near syncope, generalized weakness, dizziness and SOB with an onset today. Patient stated that onset occurred while at latter day. As he was walking back into the latter day, he noted that he became very weak all over, developed a CHAVEZ and lost his vision before his near syncopal episode. He then said that the episode last about 10 minutes and after which he had bilateral numbness and weakness in his LE. S/P onset, pt had BS checked with a reading of 93. He denies having any chest pain, sore throat, cough or any hx of DM. While in ED, pt stated that he still has some weakness/numbness in legs and that he still has a CHAVEZ. Patient is followed by Dr. Martinez and physicians at [facility]. During hospitalization, pt was placed on the chest pain pathway and ruled out for acute coronary syndrome. Serial troponins are negative. No significant dysrhythmias were reported on telemetry. Cardiology was consulted to assist with this management. He did admit to some dull chest pain in the middle of his chest that did not radiate and was not associated with shortness of breath, nausea, vomiting or diaphoresis. Cardiology felt it was musculoskeletal pain and started the patient on gabapentin and Tylenol. Echo showed mild concentric left ventricular hypertrophy, EF > 55 %, 1 + RVE, 1 + LUIS ANTONIO, Mild mitral valve regurgitation, Mild aortic valve sclerosis without stenosis or regurgitation, Trace pulmonary valve regurgitation. Cardiology has recommended an outpatient stress test for pre-op clearance for left TKR. Carotid dopplers showed findings consistent with less than 50% stenosis bilaterally. On the left, stenosis is approaching 50%. Due to syncope and complaints of headache, CT head on admission showed mild paranasal sinus disease. White matter changes likely attributable to chronic microvascular ischemia. Repeat CT head showed no changes. Pt did not have any head trauma. He had no nuchal rigidity. No fever. No photo or phonophobia and no nausea, vomiting, paralysis or paralysis. reported nasal congestion and pt was restarted on nasal Flonase for allergic rhinitis with improvement in his headache. I explained his headache may also be in part due to rebound due to chronic pain medication he takes for chronic back pain and arthritis of left knee. I will defer TERESA screening to his PCP as family did not admit to him snoring while sleep with apneic spells. I would like to get an MRI brain with contrast to rule out sinus vein thrombosis but due to elevated creatinine we will have to defer this for now. Neurology was not available during his hospital stay. He was instructed to follow up with neurology Tuesday 02/20 if symptoms did not improve. For hypertension, Pt was restarted on Norvasc 10 mg po daily and BP remained well controlled. For dyslipidemia, pt was continued on home medication. For CKD stage 3, Renal U/S: Impression: Increased parenchymal echogenicity, which is associated with medical renal disease. 2 small cysts of the left kidney. Pt and were counseled on avoiding nephrotoxic agents. Once his symptoms improved and he was cleared by all consultants, pt was discharged to home for ongoing care. - Time spent with patient Time with patient DS: Greater than 30 minutes (47 minutes) Diagnosis - Discharge Diagnosis (1) Chronic kidney disease, stage 3 (moderate) Status: Chronic (2) Near syncope Status: Resolved (3) Headache Status: Chronic (4) Malignant hypertension Status: Resolved (5) Hyperlipidemia Status: Chronic Specialty Discharge - Follow Up or Referrals Follow up with: MD, PCP at [facility] [Other] - 2 Weeks Jack White MD [Physician] - 3 Days (F/U headache. CT head negative for acute findings) Jomar Martinez MD [Physician] - 1 Month (Outpatient stress test [facility] within 1- 2 weeks. Also, echo the same day of stress test (RE: [facility]). Schedule F/U appointment Dr. Martinez 1 week after stress test and echo. ) Discharge Plan - Discharge Data Disposition: Disch To Home/Self Care Condition at Discharge: Stable Discharge Diet: heart healthy Activity: resume usual activities as tolerated Contact your physician if you experience:: fever over 101, Difficulty voiding, Redness or swelling, Nausea/Vomiting, Shortness of breath, Bleeding, pain uncontrolled by pain medications - Discharge Medications New Acetaminophen Tab [Tylenol Tab] 325 mg PO BID #28 tablet Gabapentin Cap/Tab [Neurontin Cap/Tab] 100 mg PO TID #90 capsule amLODIPine [Norvasc] 10 mg PO DAILY #30 tablet Fluticasone 50 Mcg Nasal Thornton [Flonase Nasal Thornton] 1 spray BOTH NARES BID # 16 gm traMADol TAB [Ultram] 50 mg PO BID #14 tablet Continue Aspirin [Ecotrin] 81 mg PO DAILY Cholecalciferol [Vitamin D3] 2,000 unit PO DAILY Primidone 100 mg PO BEDTIME Pantoprazole Tab [Protonix Tab] 40 mg PO DAILY Atorvastatin [Lipitor] 40 mg PO DAILY Hydrocodone/Acetaminophen [Hydrocodon-Acetaminoph 7.5-325] 7.5 mg PO BID PRN PRN Reason: pain Discontinued Losartan Potassium 100 mg PO DAILY - Follow Up or Referral Follow Up: MD, PCP at [facility] [Other] - 2 Weeks Jack White MD [Physician] - 3 Days (F/U headache. CT head negative for acute findings) Jomar Martinez MD [Physician] - 1 Month (Outpatient stress test [facility] within 1- 2 weeks. Also, echo the same day of stress test (RE: [facility]). Schedule F/U appointment Dr. Martinez 1 week after stress test and echo. ) - Forms/Instructions Exam - Constitutional Vitals: Period Temp Pulse Resp BP Sys/Rouse Pulse Ox Last 24 Hr 98.1 F-99.1 F 55-67 16-20 123-187/61-86 96-100 Exam: see progress note from 02/17 as physical exam is unchanged. Discharge Results Labs on day of discharge: Labs from last 24 hours 02/18/17 10:19 Creatinine 2.10 H GFR Calculation 37 DS: Provider Date of admission: 02/16/17 17:39 Primary care physician: . No PCP Attending physician on admission: Saeed Marin MD Consults: 02/17/17 13:47 Consult to Physician [CONS] Routine Comment: chest pain. Will need pre-op clearance for TKR Consulting Provider: Jomar Martinez When should Consulting Provider be notified: Now Consult to Specialist Group: Cardiology Consult Notification Comment: Left message w/ answering service @ 14:40. Discharging clinician: Yadira Arenas MD
--- NOTE | 2017-02-18 12:43 | Cardiology Progress Note ---
Assessment and Plan - Time spent with patient Time spent with patient: Greater than 30 minutes (1) Bradycardia Status: Acute Assessment and plan: SEE PLAN OF CARE LISTED BELOW Current Visit: Yes (2) Renal insufficiency Status: Acute Assessment and plan: SEE PLAN OF CARE LISTED BELOW Current Visit: Yes (3) Headache Status: Acute Assessment and plan: SEE PLAN OF CARE LISTED BELOW Current Visit: Yes (4) Hyperlipidemia Status: Chronic Assessment and plan: SEE PLAN OF CARE LISTED BELOW Current Visit: Yes (5) Hypertension Status: Chronic Assessment and plan: SEE PLAN OF CARE LISTED BELOW Current Visit: Yes (6) Near syncope Status: Resolved Assessment and plan: SEE PLAN OF CARE LISTED BELOW Current Visit: Yes Cardiology - PN: Subj Interval history: Mr. Arzola, 71BM, previously followed by Dr. Martinez though he has not been seen in several years. Risk factors include: Known coronary artery disease, hypertension, dyslipidemia. Patient presented to the emergency department at [facility] February 16, 2017, after experiencing dizziness, weakness, visual changes. Patient had been standing outside in the heat and his [employer]on[employer] yard. He began to feel "dizzy like I was drunk" and his vision began to change. He began to have visual "blackout" and his knees became weak. When he reached the interior of the mormonism, he leaned against a wall and eventually eased to the ground. He denies having chest pain, heaviness or tightness. He denies having palpitations or any preceding symptoms. He states he did have some shortness of breath with this episode. The symptoms lasted approximately 3-4 minutes and resolved. Later on during the night, he began to experience chest discomfort in the midsternal area described as "sharp." It did not radiate, cause nausea, vomiting, diaphoresis or shortness of breath. It is reproducible with palpation. Patient reports he is normally very active and can perform these activities without chest pain, heaviness, tightness or shortness of breath. He has no heart racing or palpitations. Patient reports he has had some swelling of lower extremities over the past several months. Blood pressure improved with adjustments in his medications. Overnight, he is feeling much better. He is having no chest pain, heaviness or tightness. Headache has improved. is at the bedside he would like to be discharged home. Dr. Martinez is present. He is agreeable with discharge. He would like for me to arrange a stress test in approximately 1 week at [facility] [place] [facility] the [facility]. Also an echocardiogram (uncontrolled hypertension, LVH) . He will also require a 2-[address] Martinez at [facility] The office is closed today and we will arrange for this to be scheduled on Monday. From a cardiology standpoint, patient is stable for discharge. He had no arrhythmia and is feeling well. ASSESSMENT/PLAN: 1. NEAR SYNCOPE -no arrhythmia noted. He was hydrated. May consider an event monitor in the future should this recur however he has had no significant bradycardia once he was here. He was not orthostatic. Will arrange for outpatient stress test and echocardiogram with follow-up with Dr. sinclair. (See above). 2. CHEST PAIN - reproducible to palpation. "Juan cocktail" for MS pain. Chest pain has resolved. Patient does have known heart disease and may benefit from outpatient stress test and this may be arranged at [facility] prior to discharge. 3. HYPERTENSION - much better controlled with addition of Norvasc and hydralazine. 4. DYSLIPIDEMIA - LDL 81. Currently taking Atorvastatin. Was increased to 40mg each evening. 5. 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 6. HEAD-ACHE - may be related to hypertension. CT Head does not reveal acute abnormality. Improved 7. RENAL INSUFFICIENCY, STAGE III - chronicity unknown. Exam (Progress Note) - Constitutional Vitals: Period Temp Pulse Resp BP Sys/Rouse Pulse Ox Last 24 Hr 98.1 F-99.1 F 55-67 16-20 123-187/61-86 96-100 Exam: General: [Appears well with no apparent distress.] [Pleasant and cooperative. ] [Appears comfortable.] HEENT: [PERRL, normocephalic, atraumatic. Mucous membranes moist. No jaundice noted. Conjunctiva moist and clear, sclerae anicteric] Neck: No JVD/HJR, no thyromegaly or lymphadenopathy noted. No carotid bruit appreciated Cardiac: [Regular rate and rhythm.] [No murmur rub or gallop.] Lungs: [Clear to auscultation without accessory muscle use to assist the respiratory pattern.] Not requiring oxygen Abdomen: Soft, bowel sounds normoactive. Nontender and nondistended. No abdominal bruit or thrill noted. No masses noted. Musculoskeletal: No fluid collection. Decreased range of motion is noted. Extremities: No clubbing, cyanosis noted. [ No edema noted.] Upper extremity pulses 2+. Lower extremity pulses 2+. Capillary refill less than 3 seconds. Skin: No unusual lesions or rashes. No skin breakdown appreciated. Neuro: Awake, alert and oriented 3. Moves all extremities well without hemiparesis or paralysis. No essential tremor is appreciated. Result/EKG - Labs CBC & BMP: 02/16/17 16:51 02/18/17 10:19 Lab Results: I have reviewed the past 24 hour labs Labs: Laboratory Results - last 24 hr 02/18/17 10:19 Creatinine 2.10 H GFR Calculation 37 - Diagnostic Findings Procedure: Chest x-ray: report reviewed by me, CT: report reviewed by me - EKG EKG results: interpreted by me EKG shows: bradycardia, sinus rhythm Specialty Discharge - Follow Up or Referrals Follow up with: , PCP at [facility] [Other] - 2 Weeks Jomar Martinez MD [Physician] - 1 Month (Outpatient stress test [facility] within 1- 2 weeks. Also, echo the same day of stress test (RE: LVH). Schedule F/U appointment Dr. Martinez 1 week after stress test and echo. )
--- NOTE | 2017-02-18 13:38 | CT Report ---
CT of the head without contrast. Indication: Persistent headache. Comparison: February 16, 2017. There is generalized prominence of the ventricles and sulci consistent with atrophy of aging. There is calcific plaque present within the vertebral arteries and intracranial internal carotid arteries. There is no mass effect or midline shift. There is no evidence of acute hemorrhage. Basal ganglial calcification is noted. No cortical infarcts are seen at this time. Questionable area of old ischemia versus sulcal prominence at the left cerebellar hemisphere. Questionable area of lacunar infarction versus averaging with the lateral ventricle, at the left thalamus. The calvarium is intact. Scattered mucus debris and mucosal thickening is seen within the ethmoid sinuses. The mastoid air cells are clear. Impression: 1. No evidence of acute hemorrhage. 2. Chronic ischemic changes. 3. Mild paranasal sinus disease. The CT exam was performed using one or more of the following dose reduction techniques: Automated exposure control, adjustment of the mA and/or kV according to patient size, or use of iterative reconstruction technique. PROCEDURE INTERPRETED AT [facility] DEPARTMENT OF RADIOLOGY Final Report Signed by: Dr. Alicia Palma
[2017-02-18] MEDS: ENOXAPARIN 30 MG/0.3 ML SYRINGE SUBCUT SCH (15:18)
== END 2017-02-18 16:12 | disposition home or self-care (01) ==
LOC: N.EDINP 16:01 → N.ED 16:01 → SUATTDRO 17:39 → N.TELEN 18:07
PROVIDERS: ADMIT Internal Medicine; ATTEND Pediatrics

== ENCOUNTER 2019-03-04 08:22 | Inpatient (IN) ==
[2019-03-04] MEDS ORDERED: HYDROmorphone 2 MG/1 ML VIAL IV STA (08:41)
[2019-03-04] MEDS ORDERED: ONDANSETRON 4 MG/2 ML VIAL IV STA (08:41)
[2019-03-04] MEDS ORDERED: ASPIRIN 325 MG TABLET PO STA (08:41)
[2019-03-04 09:07] LABS: Basophils % 0.2 % (0.0-0.8); Eosinophils % 0.2 % (0.00-10.9); Hematocrit 33.9 VOL% (42.0-52.0); Hemoglobin 10.9 GM/DL (14.0-18.0); Immature Granulocytes % 0.5 %; Immature Granulocytes Absolute 0.06 #; Lymphocytes # 1.3 10*3/uL (1.4-4.0); Lymphocytes % 10.1 % (21.2-54.2); Mean Corpuscular HGB Conc 32.2 GM/DL (32-36); Mean Platelet Volume 10.8 FL (9.6-12.0); Monocytes % 11.2 % (1.7-12.7); Neutrophils % 77.8 % (38.7-73.9); Platelet Count 143 T/CUMM (130-400); Red Blood Count 3.57 MC/CUMM (3.8-5.5); Red Cell Distribution Width 13.3 % (9.3-17.3)
[2019-03-04 09:16] LABS: PT Patient Result 10.5 SECS; Partial Thromboplastin Time 26.9 SECS (0-40)
[2019-03-04 09:34] LABS: Albumin 3.2 G/DL (3.4-5.0); Bilirubin,Total 1.1 MG/DL (0.2-1.0); Calcium 8.9 MG/DL (8.5-10.1); Osmolality,Calculated 281.5 MOS/KG (273-304); Total Protein 7.4 G/DL (6.4-8.3)
[2019-03-04] MEDS ORDERED: methylPREDNISolone SOD SUC 125 MG/2 ML VIAL IV STA (10:55)
[2019-03-04] MEDS ORDERED: LEVOFLOXACIN INJ 500 MG in PREMIX 1 EACH IV STA (10:55)
[2019-03-04] MEDS ORDERED: ALBUTEROL 2.5 MG/3 ML NEB RESP TX PRN (14:06)
[2019-03-04] MEDS ORDERED: guaiFENesin/CODEINE 5 ML LIQUID PO PRN (14:06)
[2019-03-04 15:05] LABS: Apearance,Urine CLEAR (Clear); Bacteria,Urine Occasional /HPF (Few); Bilirubin,Urine Negative (Negative); Blood, Urine Small mg/dL (Negative); Glucose,Urine (UA) Negative (Negative); Ketones,Urine Negative (Negative); Mucus,Urine Occasional /LPF (Occasional); Nitrite,Urine Negative (Negative); Protein,Urine 30 MG/DL; RBC,Urine 1 /HPF (0-4); Squamous Epithelial Cell,Urine Occasional /HPF (0-10); Urine Color Yellow (Yellow); Urine Specific Gravity 1.011 (1.001-1.035); WBC,Urine <1 /HPF (0-6)
[2019-03-04] MEDS: GABAPENTIN 100 MG CAPSULE PO SCH ×2 (15:33→20:31)
[2019-03-04] MEDS: HEPARIN 5,000 UNIT/1 ML VIAL SUBCUT SCH ×2 (15:33→22:54)
[2019-03-04] MEDS ORDERED: HYDROmorphone 2 MG/1 ML VIAL ONE (17:02)
[2019-03-04] MEDS ORDERED: HYDROmorphone 2 MG/1 ML VIAL IV ONE (17:05)
[2019-03-04 17:23] LABS: Hepatitis B Core IgM Quant 0.09 Index; Hepatitis B Surface Ag Quant < 0.10 Index; Hepatitis B Surface Ag Result Negative (Negative); Hepatitis C Virus Ab Quant 0.11 Index; Hepatitis C Virus Ab Result Negative (Negative)
[2019-03-04] MEDS: METHOCARBAMOL 750 MG TABLET PO SCH ×2 (18:22→20:30)
[2019-03-04] MEDS: ALBUTEROL/IPRATROPIUM 3 ML NEB RESP TX SCH (19:17)
[2019-03-04] MEDS: methylPREDNISolone SOD SUC 40 MG/1 ML VIAL IV SCH (20:30)
[2019-03-04] MEDS: traMADol 50 MG TABLET PO SCH (20:31)
[2019-03-04] MEDS: ACETAMINOPHEN 325 MG TABLET PO SCH (20:31)
[2019-03-04] MEDS: PRIMIDONE 50 MG TABLET PO SCH (20:31)
[2019-03-04] MEDS: guaiFENesin/DM ER 600-30 MG TABLET PO SCH (20:31)
[2019-03-04] MEDS: FLUTICASONE 50 MCG NASAL SPRAY 16 GM BOTTLE BOTH NARES SCH (20:32)
[2019-03-05] MEDS: ALBUTEROL/IPRATROPIUM 3 ML NEB RESP TX SCH ×4 (01:17→19:25)
[2019-03-05] MEDS: methylPREDNISolone SOD SUC 40 MG/1 ML VIAL IV SCH ×3 (02:51→16:24)
[2019-03-05] MEDS ORDERED: ACETAMINOPHEN 325 MG TABLET PO ONE (03:09)
[2019-03-05 05:06] LABS: Basophils % 0.1 % (0.0-0.8); Hematocrit 30.7 VOL% (42.0-52.0); Immature Granulocytes % 0.7 %; Immature Granulocytes Absolute 0.09 #; Lymphocytes # 0.6 10*3/uL (1.4-4.0); Lymphocytes % 4.6 % (21.2-54.2); Mean Corpuscular HGB Conc 32.6 GM/DL (32-36); Mean Platelet Volume 11.5 FL (9.6-12.0); Monocytes % 4.4 % (1.7-12.7); Neutrophils % 90.2 % (38.7-73.9); Platelet Count 151 T/CUMM (130-400); Red Cell Distribution Width 13.1 % (9.3-17.3); White Blood Count 13.8 T/CUMM (4-12)
[2019-03-05 05:44] LABS: Band Neutrophils 1 % (0-10); Hypochromasia 1+; Lymphocytes 7 % (20-55); Ovalocytes Slight; Platelet Estimate Adequate; Segmented Neutrophils 89 % (50-85); Total Cells Counted 100
[2019-03-05 07:20] LABS: Albumin 2.8 G/DL (3.4-5.0); Calcium 9.1 MG/DL (8.5-10.1); Total Protein 7.5 G/DL (6.4-8.3)
[2019-03-05] MEDS: traMADol 50 MG TABLET PO SCH ×2 (08:50→21:24)
[2019-03-05] MEDS: ASPIRIN EC 81 MG TABLET PO SCH (08:50)
[2019-03-05] MEDS: METHOCARBAMOL 750 MG TABLET PO SCH ×4 (08:50→21:25)
[2019-03-05] MEDS: ACETAMINOPHEN 325 MG TABLET PO SCH ×2 (08:50→15:43)
[2019-03-05] MEDS: HEPARIN 5,000 UNIT/1 ML VIAL SUBCUT SCH ×2 (08:51→16:24)
[2019-03-05] MEDS: GABAPENTIN 100 MG CAPSULE PO SCH ×3 (08:51→21:25)
[2019-03-05] MEDS: PANTOPRAZOLE 40 MG TABLET PO SCH (08:51)
[2019-03-05] MEDS: guaiFENesin/DM ER 600-30 MG TABLET PO SCH ×2 (08:51→21:24)
[2019-03-05] MEDS: CHOLECALCIFEROL 1,000 UNIT TABLET PO SCH (08:51)
[2019-03-05] MEDS: amLODIPine 10 MG TABLET PO SCH (08:51)
[2019-03-05] MEDS: FLUTICASONE 50 MCG NASAL SPRAY 16 GM BOTTLE BOTH NARES SCH ×2 (10:12→21:25)
[2019-03-05] MEDS: SODIUM CHLORIDE 0.9% 1,000 ML IV SCH (12:47)
[2019-03-05] MEDS ORDERED: ACETAMINOPHEN 325 MG TABLET PO PRN (15:48)
[2019-03-05] MEDS: PRIMIDONE 50 MG TABLET PO SCH (21:24)
[2019-03-05] MEDS ORDERED: LACTULOSE 20 GM/30 ML UDCUP PO ONE (22:49)
[2019-03-06] MEDS: ALBUTEROL/IPRATROPIUM 3 ML NEB RESP TX SCH ×2 (01:00→07:30)
[2019-03-06] MEDS: HEPARIN 5,000 UNIT/1 ML VIAL SUBCUT SCH ×2 (01:05→08:24)
[2019-03-06] MEDS: methylPREDNISolone SOD SUC 40 MG/1 ML VIAL IV SCH ×2 (01:05→08:19)
[2019-03-06 05:22] LABS: Basophils % 0.1 % (0.0-0.8); Hematocrit 30.3 VOL% (42.0-52.0); Hemoglobin 9.9 GM/DL (14.0-18.0); Immature Granulocytes % 1.1 %; Immature Granulocytes Absolute 0.17 #; Lymphocytes # 0.6 10*3/uL (1.4-4.0); Lymphocytes % 3.6 % (21.2-54.2); Mean Corpuscular HGB Conc 32.7 GM/DL (32-36); Mean Corpuscular Volume 93.5 FL (87-102); Mean Platelet Volume 11.3 FL (9.6-12.0); Monocytes % 5.8 % (1.7-12.7); Neutrophils % 89.4 % (38.7-73.9); Platelet Count 167 T/CUMM (130-400); Red Blood Count 3.24 MC/CUMM (3.8-5.5); White Blood Count 15.6 T/CUMM (4-12)
[2019-03-06 05:39] LABS: Albumin 2.6 G/DL (3.4-5.0); Bilirubin,Total 0.9 MG/DL (0.2-1.0); Calcium 8.6 MG/DL (8.5-10.1); Osmolality,Calculated 280.7 MOS/KG (273-304)
[2019-03-06 05:53] LABS: Band Neutrophils 2 % (0-10); Lymphocytes 3 % (20-55); Segmented Neutrophils 87 % (50-85)
[2019-03-06 05:54] LABS: Platelet Estimate Adequate; Total Cells Counted 100
[2019-03-06] MEDS: guaiFENesin/DM ER 600-30 MG TABLET PO SCH (08:21)
[2019-03-06] MEDS: CHOLECALCIFEROL 1,000 UNIT TABLET PO SCH (08:21)
[2019-03-06] MEDS: traMADol 50 MG TABLET PO SCH (08:22)
[2019-03-06] MEDS: GABAPENTIN 100 MG CAPSULE PO SCH (08:22)
[2019-03-06] MEDS: ASPIRIN EC 81 MG TABLET PO SCH (08:22)
[2019-03-06] MEDS: PANTOPRAZOLE 40 MG TABLET PO SCH (08:22)
[2019-03-06] MEDS: SODIUM CHLORIDE 0.9% 1,000 ML IV SCH (08:23)
[2019-03-06] MEDS: amLODIPine 10 MG TABLET PO SCH (08:23)
[2019-03-06] MEDS: METHOCARBAMOL 750 MG TABLET PO SCH (08:23)
[2019-03-06] MEDS: FLUTICASONE 50 MCG NASAL SPRAY 16 GM BOTTLE BOTH NARES SCH (08:24)
[2019-03-06] MEDS ORDERED: valACYclovir 500 MG TABLET PO SCH (11:00)
[2019-03-06 12:12] VITALS: BP 118/70
== END 2019-03-06 13:40 | disposition home or self-care (01) | DRG 871 ==
LOC: N.ED 08:22 → N.EDINP 11:06 → N.2E 16:34
PROVIDERS: ADMIT Internal Medicine; ATTEND Internal Medicine

== ENCOUNTER 2019-08-01 15:52 | Observation (INO) ==
[2019-08-01] MEDS ORDERED: ENOXAPARIN 100 MG/ML SYRINGE SUBCUT STA (16:51)
[2019-08-01] MEDS ORDERED: ASPIRIN 325 MG TABLET PO STA (16:51)
[2019-08-01] MEDS ORDERED: ENOXAPARIN 60 MG/0.6 ML SYRINGE ONE (17:31)
[2019-08-01 17:57] LABS: Alanine Aminotransferase 15 U/L (16-61); Albumin 3.8 G/DL (3.4-5.0); Alkaline Phosphatase 92 U/L (45-117); Aspartate Amino Transferase 19 U/L (0-37); Bilirubin,Total < 0.39 MG/DL (0.2-1.0); Blood Urea Nitrogen 35 MG/DL (7-18); Calcium 9.3 MG/DL (8.5-10.1); Estimated Glom Filtration Rate 32 ML/MIN; Glucose 82 MG/DL (74-106); Osmolality,Calculated 283.5 MOS/KG (273-304); Total Protein 7.9 G/DL (6.4-8.3)
[2019-08-01] MEDS ORDERED: PANTOPRAZOLE 40 MG VIAL IV STA (19:21)
[2019-08-01 19:46] LABS: Basophils # 0.1 10*3/uL (0.0-0.2); Basophils % 0.6 % (0.0-0.8); Eosinophils # 0.1 10*3/uL (0.0-0.87); Eosinophils % 1.3 % (0.00-10.9); Hematocrit 37.5 VOL% (42.0-52.0); Hemoglobin 12.2 GM/DL (14.0-18.0); Immature Granulocytes % 0.3 %; Immature Granulocytes Absolute 0.03 #; Lymphocytes # 3.3 10*3/uL (1.4-4.0); Lymphocytes % 30.2 % (21.2-54.2); Mean Corpuscular HGB Conc 32.5 GM/DL (32-36); Mean Corpuscular Volume 93.3 FL (87-102); Mean Platelet Volume 11.5 FL (9.6-12.0); Monocytes % 9.2 % (1.7-12.7); Neutrophils % 58.4 % (38.7-73.9); Platelet Count 199 T/CUMM (130-400); Red Blood Count 4.02 MC/CUMM (3.8-5.5); Red Cell Distribution Width 13.1 % (9.3-17.3); White Blood Count 10.8 T/CUMM (4-12)
[2019-08-01] MEDS ORDERED: NITROGLYCERIN SL 0.4 MG TABLET SL PRN (20:18)
[2019-08-01] MEDS ORDERED: DOCUSATE SODIUM 100 MG CAPSULE PO PRN (20:22)
[2019-08-01] MEDS ORDERED: ONDANSETRON 4 MG/2 ML VIAL IV PRN (20:22)
[2019-08-01] MEDS ORDERED: MORPHINE 4 MG/1 ML VIAL IV PRN (20:22)
[2019-08-01] MEDS ORDERED: SODIUM CHLORIDE 0.9% 1,000 ML IV SCH (20:30)
[2019-08-01] MEDS: PREGABALIN 75 MG CAPSULE PO SCH (22:28)
[2019-08-01] MEDS: DOXYCYCLINE HYCLATE 100 MG CAPSULE PO SCH (22:28)
[2019-08-01] MEDS: traMADol 50 MG TABLET PO SCH (22:29)
[2019-08-01] MEDS: guaiFENesin/DM ER 600-30 MG TABLET PO SCH (22:29)
[2019-08-02] MEDS: ACETAMINOPHEN 325 MG TABLET PO PRN ×2 (01:29→05:53)
[2019-08-02 06:15] LABS: Basophils # 0.1 10*3/uL (0.0-0.2); Basophils % 0.8 % (0.0-0.8); Eosinophils # 0.1 10*3/uL (0.0-0.87); Eosinophils % 1.5 % (0.00-10.9); Hematocrit 33.8 VOL% (42.0-52.0); Hemoglobin 11.3 GM/DL (14.0-18.0); Immature Granulocytes % 0.2 %; Immature Granulocytes Absolute 0.02 #; Lymphocytes # 2.6 10*3/uL (1.4-4.0); Lymphocytes % 30.3 % (21.2-54.2); Mean Corpuscular HGB Conc 33.4 GM/DL (32-36); Mean Corpuscular Volume 91.1 FL (87-102); Mean Platelet Volume 12.1 FL (9.6-12.0); Monocytes % 10.6 % (1.7-12.7); Neutrophils % 56.6 % (38.7-73.9); Platelet Count 175 T/CUMM (130-400); Red Blood Count 3.71 MC/CUMM (3.8-5.5); White Blood Count 8.5 T/CUMM (4-12)
[2019-08-02 06:52] LABS: Calcium 8.4 MG/DL (8.5-10.1); Osmolality,Calculated 282.7 MOS/KG (273-304); Risk Ratio 2.67; Thyroid Stimulating Hormone 0.734 uIU/ml (0.358-3.74)
[2019-08-02 08:19] VITALS: BP 125/69
[2019-08-02] MEDS ORDERED: MAGNESIUM SULF RIDER 2 GM in PREMIX 1 EACH IV ONE (08:47)
[2019-08-02] MEDS ORDERED: ATORVASTATIN 40 MG TABLET PO SCH (09:00)
[2019-08-02] MEDS ORDERED: ASPIRIN EC 81 MG TABLET PO SCH (09:00)
[2019-08-02] MEDS ORDERED: GABAPENTIN 100 MG CAPSULE PO SCH (09:00)
[2019-08-02] MEDS ORDERED: PRIMIDONE 50 MG TABLET PO SCH (09:00)
[2019-08-02] MEDS ORDERED: PANTOPRAZOLE 40 MG TABLET PO SCH (09:00)
[2019-08-02] MEDS ORDERED: amLODIPine 10 MG TABLET PO SCH (09:00)
[2019-08-02] MEDS ORDERED: CHOLECALCIFEROL 1,000 UNIT TABLET PO SCH (09:00)
[2019-08-02] MEDS ORDERED: FLUTICASONE 50 MCG NASAL SPRAY 16 GM BOTTLE BOTH NARES SCH (09:00)
[2019-08-02] MEDS: traMADol 50 MG TABLET PO SCH (09:18)
[2019-08-02] MEDS: guaiFENesin/DM ER 600-30 MG TABLET PO SCH (09:18)
[2019-08-02] MEDS: PREGABALIN 75 MG CAPSULE PO SCH (09:31)
[2019-08-02] MEDS: DOXYCYCLINE HYCLATE 100 MG CAPSULE PO SCH (09:31)
[2019-08-02] MEDS ORDERED: KETOROLAC 30 MG/1 ML VIAL IV ONE (10:37)
[2019-08-02] MEDS ORDERED: ACETAMINOPHEN 325 MG TABLET PO SCH (11:00)
[2019-08-02 14:22] LABS: Apearance,Urine CLEAR (Clear); Bilirubin,Urine Negative (Negative); Blood, Urine Negative (Negative); Glucose,Urine (UA) Negative (Negative); Ketones,Urine Negative (Negative); Mucus,Urine Occasional /LPF (Occasional); Nitrite,Urine Negative (Negative); Protein,Urine Negative; RBC,Urine <1 /HPF (0-4); Squamous Epithelial Cell,Urine Occasional /HPF (0-10); Urine Color Straw (Yellow); Urine Specific Gravity 1.011 (1.001-1.035); Urine Urobilinogen < 2.0 EU/DL (0.2-1.0)
[2019-08-02] MEDS ORDERED: ENOXAPARIN 40 MG/0.4 ML SYRINGE SUBCUT SCH (17:00)
== END 2019-08-02 15:35 | disposition home or self-care (01) ==
LOC: N.EDINP 15:52 → N.ED 15:52 → N.2W 20:31
PROVIDERS: ADMIT Internal Medicine; ATTEND Internal Medicine